=== PATIENT | female | born 1975 | race African-American/Black ===

== ENCOUNTER → 2017-01-12 04:13 | Emergency (ER) | payer OTHER | END | disposition home or self-care (01) | LOC: CED 04:13 | DX: J02.9 Acute pharyngitis, unspecified (principal); F17.200 Nicotine dependence, unspecified, uncomplicated | CPT/HCPCS: 87651; 99282 ==

== ENCOUNTER 2017-01-27 19:46 | Emergency (ER) | payer OTHER | END 2017-01-27 20:16 | disposition home or self-care (01) | LOC: CFTX 19:46 | DX: L02.415 Cutaneous abscess of right lower limb (principal); F17.200 Nicotine dependence, unspecified, uncomplicated | CPT/HCPCS: 10060; 99283 ==